=== PATIENT | male | born 1970 | race Two or more races ===

== ENCOUNTER 2018-11-14 12:22 | Emergency (ER) | payer BC, OTHER ==
[2018-11-14 12:48] VITALS: BP 126/73
[2018-11-14] MEDS ORDERED: KETOROLAC TROMETHAMINE 60 MG/2 ML SDV IM ONE (13:48)
[2018-11-14] MEDS ORDERED: METHYLPREDNISOLONE ACETATE INJ 80 MG/1 ML VIAL IM ONE (13:48)
--- NOTE | 2018-11-14 13:50 | ER Document Report ---
ED General - General Chief Complaint: Shortness Of Breath Stated Complaint: SHORT OF BREATH Time Seen by Provider: 11/14/18 13:41 Primary Care Provider: TILA LAWSON MD [Primary Care Provider] - Follow up in 3-5 days Notes: Patient is a 48-year-old male otherwise healthy that presents to the emergency department for chief complaint of pain with deep breathing on both sides. Patient states he recently got over a cold, was having some cough, and had sick contacts. Now is having pain with taking deep breathing, and both sides of his chest, mainly on the outside by the ribs. He denies having any pain at rest, denies shortness of breath, or difficulty breathing. He states is across his entire chest, and towards the back on both sides. He denies any dyspnea on exertion, fevers, chills, night sweats, nausea, vomiting or abdominal pain. He also denies having any headaches, lightheadedness or dizziness. He does state he was recently seen by urgent care, [facility], he did a chest x-ray 3 days ago, that was negative for any acute process, negative for pneumonia according to the patient. Past Medical History: Denies chronic medical conditions Past Surgical History: Shoulder surgery Social History: Denies tobacco, alcohol or drug use. Family History: Reviewed and noncontributory for presenting illness Allergies: Reviewed, see documented allergy list. REVIEW OF SYSTEMS: Other than noted above, the 12 point review of systems was reviewed with the patient and were negative, all pertinent findings are included in the HPI. PHYSICAL EXAMINATION: Vital signs reviewed, nursing noted reviewed. GENERAL: Well-appearing, well-nourished and in no acute distress. HEAD: Atraumatic, normocephalic. EYES: Eyes appear normal, extraocular movements intact, sclera anicteric, conjunctiva are normal. ENT: nares patent, oropharynx clear without exudates. Moist mucous membranes. NECK: Normal range of motion, supple without lymphadenopathy LUNGS: Breath sounds clear to auscultation bilaterally and equal. No wheezes rales or rhonchi. HEART: Regular rate and rhythm without murmurs ABDOMEN: Soft, nontender, normoactive bowel sounds. No rebound, guarding, or rigidity. No masses appreciated. EXTREMITIES: Nontender, good range of motion, no pitting or edema. NEUROLOGICAL: No focal neurological deficits. Moves all extremities spontaneously Motor and sensory grossly intact on exam. PSYCH: Normal mood, normal affect. SKIN: Warm, Dry, normal turgor, no rashes or lesions noted on exposed skin TRAVEL OUTSIDE OF THE [place] IN LAST 30 DAYS: No - Related Data Allergies/Adverse Reactions: No Known Allergies Allergy (Verified 07/08/14 11:43) Past Medical History - Social History Smoking Status: Unknown if Ever Smoked Family History: Reviewed & Not Pertinent Patient has suicidal ideation: No Patient has homicidal ideation: No Renal/ Medical History: Denies: Hx Peritoneal Dialysis GI Medical History: Reports: Hx Ulcer - chronic sinuitis - Immunizations Immunizations up to date: Yes Hx Diphtheria, Pertussis, Tetanus Vaccination: No Physical Exam - Vital signs Vitals: Temp Pulse Resp BP Pulse Ox 99.1 F 74 16 126/73 H 97 11/14/18 12:46 11/14/18 12:46 11/14/18 12:46 11/14/18 12:46 11/14/18 12:46 Course - Re-evaluation Re-evalutation: Patient seen and examined, vital signs reviewed, patient appears well on exam, he was complaining of pain throughout the entire chest with deep breathing, I feel that this is most likely pleurisy, as a result of recent URI, and coughing, he had a negative chest x-ray performed in urgent care 3 days ago, do not feel the need to repeat this at this time and expose the patient to unnecessary radiation, patient was given IM dose of 80 mg of Depo-Medrol, and IM Toradol, and advised to follow-up with a primary care physician. He is advised though if his symptoms are not improving over the next 24-48 hours, that he can return to the emergency department to be reevaluated. Patient was agreeable to this plan of care and discharged home. - Vital Signs Vital signs: Temp Pulse Resp BP Pulse Ox 99.1 F 74 16 126/73 H 97 11/14/18 12:46 11/14/18 12:46 11/14/18 12:46 11/14/18 12:46 11/14/18 12:46 Discharge - Discharge Clinical Impression: Pleurisy Condition: Stable Disposition: HOME, SELF-CARE Instructions: Pleurisy ([facility]) Prescriptions: Naproxen [Naprosyn] 500 mg PO BID #30 tablet Referrals: TILA LAWSON MD [Primary Care Provider] - Follow up in 3-5 days
== END 2018-11-14 14:02 | disposition home or self-care (01) ==
LOC: ER 12:22
DX: R09.1 Pleurisy (principal); R06.02 Shortness of breath
CPT/HCPCS: 99284; 96372; J1885; J1040

== ENCOUNTER 2019-01-08 14:17 | Emergency (ER) | payer OTHER ==
[2019-01-08] MEDS ORDERED: ASPIRIN 81 MG TABLET, CHEWABLE PO ONE (15:25)
--- NOTE | 2019-01-08 15:34 | EKG REPORT ---
SEVERITY:- NORMAL ECG - SINUS RHYTHM : Confirmed by: Amaris Lopes MD 08-Jan-2019 15:34:02
[2019-01-08 16:24] LABS: ABSOLUTE BASOPHILS # (AUTO) 0.1 10^3/uL (0.0-0.2); ABSOLUTE EOSINOPHILS # (AUTO) 0.1 10^3/uL (0.0-0.6); ABSOLUTE LYMPHOCYTES (AUTO) 2.9 10^3/uL (0.5-4.7); ABSOLUTE MONOCYTES (AUTO) 0.7 10^3/uL (0.1-1.4); ABSOLUTE NEUT (AUTO) 4.4 10^3/uL (1.7-8.2); BASOPHILS % (AUTO) 0.6 % (0-2); EOSINOPHILS % (AUTO) 1.2 % (0-6); HEMATOCRIT 42.1 % (37.9-51.0); HEMOGLOBIN 14.9 g/dL (13.5-17.0); LYMPHOCYTES % (AUTO) 35.7 % (13-45); MEAN CORPUSCULAR HEMOGLOBIN 31.8 pg (27.0-33.4); MEAN CORPUSCULAR HGB CONC 35.3 g/dL (32.0-36.0); MEAN CORPUSCULAR VOLUME 90 fl (80-97); MONOCYTES % (AUTO) 8.2 % (3-13); PLATELET COUNT 197 10^3/uL (150-450); RED BLOOD COUNT 4.67 10^6/uL (4.35-5.55); RED CELL DISTRIBUTION WIDTH 13.3 % (11.5-14.0); SEGMENTED NEUTROPHILS % (AUTO) 54.3 % (42-78); TOTAL CELLS COUNTED % (AUTO) 100 %; WHITE BLOOD COUNT 8.2 10^3/uL (4.0-10.5)
--- NOTE | 2019-01-08 16:24 | RADIOLOGY REPORT (SQ) ---
EXAM DESCRIPTION: CHEST 2 VIEWS COMPLETED DATE/TIME: 01/08/2019 4:16 pm REASON FOR STUDY: chest pain short of breath COMPARISON: 09/13/2014 EXAM PARAMETERS: NUMBER OF VIEWS: two views TECHNIQUE: Digital Frontal and Lateral radiographic views of the chest acquired. RADIATION DOSE: NA LIMITATIONS: none FINDINGS: LUNGS AND PLEURA: No opacities, masses or pneumothorax. No pleural effusion. MEDIASTINUM AND HILAR STRUCTURES: No masses or contour abnormalities. HEART AND VASCULAR STRUCTURES: Heart normal size. No evidence for failure. BONES: No acute findings. HARDWARE: None in the chest. OTHER: No other significant finding. IMPRESSION: NO ACUTE RADIOGRAPHIC FINDING IN THE CHEST. TECHNICAL DOCUMENTATION: JOB ID: [id number] [employer]- All Rights Reserved Reading location - IP/workstation name: [email or web address]
[2019-01-08 16:42] LABS: ALANINE AMINOTRANSFERASE 49 U/L (21-72); ALBUMIN 4.6 g/dL (3.5-5.0); ALKALINE PHOSPHATASE 59 U/L (38-126); ANION GAP 9 (5-19); ASPARTATE AMINO TRANSFERASE 33 U/L (17-59); BILIRUBIN,DIRECT 0.3 mg/dL (0.0-0.4); BILIRUBIN,TOTAL 0.8 mg/dL (0.2-1.3); BLOOD UREA NITROGEN 23 mg/dL (7-20); CALCIUM 9.9 mg/dL (8.4-10.2); CARBON DIOXIDE 27 mmol/L (22-30); CHLORIDE 103 mmol/L (98-107); GLUCOSE 96 mg/dL (75-110); POTASSIUM 4.3 mmol/L (3.6-5.0); SODIUM 138.5 mmol/L (137-145); TOTAL PROTEIN 7.4 g/dL (6.3-8.2)
[2019-01-08 16:54] LABS: CREATINE KINASE MB 0.32 ng/mL (<4.55)
[2019-01-08 17:04] LABS: TROPONIN I < 0.012 ng/mL
[2019-01-08 21:58] VITALS: BP 139/93
--- NOTE | 2019-01-08 23:50 | ER Document Report ---
ED General - General Chief Complaint: Chest Pain Stated Complaint: CHEST PAIN Time Seen by Provider: 01/08/19 15:24 Primary Care Provider: TILA LAWSON MD [Primary Care Provider] - Follow up in 3-5 days Notes: Patient is a 48-year-old male without chronic medical problems presents complaining of 3 weeks of continuous left-sided chest pain and intermittent palpitations. States that his symptoms started gradually, have been worsened in their intensity over the last 3 weeks. He has seen his primary care physician, was diagnosed with anxiety, started on buspirone and zolpidem for sleep. Does admit that he is only sleeping 2-3 hours a night and that may need his symptoms started after the loss of a loved one. He does admit to feeling somewhat anxious. However states that he is becoming increasingly concerned about the fact of the chest pain is not yet resolving and that he has had some intermitten t associated shortness of breath. He has no known cardiac history. No history of DVT or pulmonary embolus. He has no use of estrogen. No history of prolonged periods of stasis or malignancy. Pain in the left chest is described as a constant, stabbing, focal pain to his left middle chest with intermittent periods of worsening. The patient has difficulty identifying any specific worsening factor simply stating that it does seem to get worse on some occasions. Nothing seems to improve his symptoms. He denies pleuritic pain, hemoptysis, or radiation of the pain into the arms, jaw or back. TRAVEL OUTSIDE OF THE [place] 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 HENT: Negative for sore throat. Eyes: Negative for visual changes. Cardiovascular: Positive for chest pain. Respiratory: Positive for shortness of breath. Gastrointestinal: Negative for abdominal pain, vomiting or diarrhea. Genitourinary: Negative for dysuria. Musculoskeletal: Negative for back pain. Skin: Negative for rash. Neurological: Negative for headaches, weakness or numbness. 10 point ROS negative except as marked above and in HPI. Physical Exam - Vital signs Vitals: Temp Pulse Resp BP Pulse Ox 97.9 F 75 16 128/75 H 97 01/08/19 14:48 01/08/19 14:48 01/08/19 14:48 01/08/19 14:48 01/08/19 14:48 Interpretation: Normal Notes: PHYSICAL EXAMINATION: GENERAL: Well-appearing, well-nourished and in no acute distress. HEAD: Atraumatic, normocephalic. EYES: Pupils equal round and reactive to light, extraocular movements intact, sclera anicteric, conjunctiva are normal. ENT: nares patent, oropharynx clear without exudates. Moist mucous membranes. NECK: Normal range of motion, supple without lymphadenopathy LUNGS: Breath sounds clear to auscultation bilaterally and equal. No wheezes rales or rhonchi. HEART: Regular rate and rhythm without murmurs ABDOMEN: Soft, nontender, normoactive bowel sounds. No guarding, no rebound. No masses appreciated. EXTREMITIES: Normal range of motion, no pitting or edema. No cyanosis. NEUROLOGICAL: No focal neurological deficits. Moves all extremities spontaneously and on command. PSYCH: Normal mood, normal affect. SKIN: Warm, Dry, normal turgor, no rashes or lesions noted. Course - Re-evaluation Re-evalutation: 01/08/19 23:52 Presentation of chest pain in an otherwise well appearing patient. Low clinical suspicion for ACS given clinical history, exam, EKG without ST elevations or depressions, and negative initial troponin. HEART score less than or equal to 3. PE also seems unlikely given clinical history, absence of tachycardia or dyspnea. Patient is PERC criteria negative. CXR without evidence of pneumothorax or pneumonia. No widened mediastinum. Aortic dissection also seems unlikely given history, symmetric pulses, CXR, and vitals. Delta troponin III hours afte r initial remains normal. Patient is were concerned about the possibility of pulmonary embolus. We did discuss at length the PERC criteria and his negativity by this criteria. We did review the d-dimer test, the possibility of false positive and CTA for confirmation. After approximately a 20-minute long conversation which we reviewed the risks and benefits of proceeding with d-dimer followed by CTA versus guidance of PERC criteria the family did elect to avoid d-dimer testing. Patient does have slightly abnormal renal function, no old for comparison. Did advise the patient of this laboratory finding and the need for outpatient follow-up. Bedside cardiac ultrasound without evidence of pericardial effusion. Overall assessment: Chest pain in a patient without evidence of cardiac or other serious etiology on workup today. I discussed with patient that, based on their age, risk factors and emergency department testing today, the likelihood that their symptoms are related to a heart attack is very low (estimated risk of heart attack or over the next 30 days of less than 1%). The patient demonstrates decision making capacity and has verbalized an understanding of these risks to me. Based on this, the patient has chosen to follow-up as an outpatient. Usual chest pain return precautions reviewed. The patient states understanding and agreement with this plan. - Vital Signs Vital signs: Temp Pulse Resp BP Pulse Ox 97.9 F 75 13 139/93 H 100 01/08/19 14:48 01/08/19 14:48 01/08/19 21:27 01/08/19 21:27 01/08/19 21:27 - Laboratory Result Diagrams: 01/08/19 15:45 01/08/19 15:45 Laboratory results interpreted by me: 01/08/19 15:45 BUN 23 H Creatinine 1.91 H Est GFR ( Amer) 46 L Est GFR (Non-Af Amer) 38 L - Diagnostic Test Radiology reviewed: Image reviewed, Reports reviewed Radiology results interpreted by me: 01/08/19 23:53 Chest x-ray: No acute infiltrate or pneumothorax - EKG Interpretation by Me Additional EKG results interpreted by me: 01/08/19 23:53 Sinus rhythm, rate 79. No ST elevations or depressions. QTC is 422 Discharge - Discharge Clinical Impression: Chest pain of unknown etiology, Abnormal renal function finding Condition: Good Disposition: HOME, SELF-CARE Additional Instructions: You were seen today for chest pain. The exact cause of your pain is unclear. However, based on your cardiac enzyme testing, chest x-ray, and EKG it does not appear that it is from an immediately life-threatening cause at this time. Although your testing here is normal is critical that you follow-up with your primary care physician for continued evaluation of this chest pain and possible stress testing. I recommended you see your physician within the next 24-48 hours to be evaluated for consideration of a stress test. Please return to emergency department immediately if you have worsening of your chest pain, shortness of breath, vomiting, become unable to exert yourself due to pain or difficulty breathing, you pass out, or have any pain that radiates into your arms, jaw, or back. Please also return if you have any additional symptoms that are concerning to you. As we discussed please follow-up with your primary care doctor regarding your moderately abnormal kidney functions. I advised you to drink plenty of water over the next 1 week and have the labs rechecked within that time to determine whether or not these are chronic or single finding from just today. Referrals: TILA LAWSON MD [Primary Care Provider] - Follow up in 3-5 days
== END 2019-01-09 00:02 | disposition home or self-care (01) ==
LOC: ER 14:17
DX: R07.9 Chest pain, unspecified (principal); R06.02 Shortness of breath; R94.4 Abnormal results of kidney function studies; R00.2 Palpitations; F41.9 Anxiety disorder, unspecified; Z79.899 Other long term (current) drug therapy; F17.200 Nicotine dependence, unspecified, uncomplicated
CPT/HCPCS: 36415; 71046; 80053; 82553; 84484; 85025; 93005; 93010; 99285

== ENCOUNTER → 2019-04-02 | Outpatient (CLI) | payer OTHER ==
[2019-04-02 12:45] LABS: APPEARANCE,URINE CLEAR; BILIRUBIN,URINE NEGATIVE (NEGATIVE); COLOR,URINE YELLOW; GLUCOSE, URINE NEGATIVE (NEGATIVE); KETONES,URINE NEGATIVE (NEGATIVE); LEUKOCYTE ESTERASE,URINE NEGATIVE (NEGATIVE); NITRITE,URINE NEGATIVE (NEGATIVE); PROTEIN,URINE NEGATIVE (NEGATIVE); URINE SPECIFIC GRAVITY 1.028; UROBILINOGEN,URINE NEGATIVE mg/dL (<2.0)
[2019-04-02 12:53] LABS: ABSOLUTE EOSINOPHILS # (AUTO) 0.2 10^3/uL (0.0-0.6); ABSOLUTE LYMPHOCYTES (AUTO) 2.4 10^3/uL (0.5-4.7); ABSOLUTE MONOCYTES (AUTO) 0.5 10^3/uL (0.1-1.4); ABSOLUTE NEUT (AUTO) 3.2 10^3/uL (1.7-8.2); BASOPHILS % (AUTO) 0.7 % (0-2); EOSINOPHILS % (AUTO) 2.7 % (0-6); HEMOGLOBIN 15.7 g/dL (13.5-17.0); LYMPHOCYTES % (AUTO) 37.9 % (13-45); MEAN CORPUSCULAR HEMOGLOBIN 31.5 pg (27.0-33.4); MEAN CORPUSCULAR VOLUME 90 fl (80-97); MONOCYTES % (AUTO) 8.4 % (3-13); PLATELET COUNT 182 10^3/uL (150-450); RED CELL DISTRIBUTION WIDTH 12.6 % (11.5-14.0); SEGMENTED NEUTROPHILS % (AUTO) 50.3 % (42-78); TOTAL CELLS COUNTED % (AUTO) 100 %; WHITE BLOOD COUNT 6.3 10^3/uL (4.0-10.5)
[2019-04-02 13:05] LABS: ALANINE AMINOTRANSFERASE 41 U/L (21-72); ALBUMIN 4.5 g/dL (3.5-5.0); ALKALINE PHOSPHATASE 63 U/L (38-126); ANION GAP 8 (5-19); ASPARTATE AMINO TRANSFERASE 31 U/L (17-59); BILIRUBIN,DIRECT 0.3 mg/dL (0.0-0.4); BILIRUBIN,TOTAL 0.9 mg/dL (0.2-1.3); BLOOD UREA NITROGEN 17 mg/dL (7-20); CALCIUM 9.7 mg/dL (8.4-10.2); CARBON DIOXIDE 29 mmol/L (22-30); CHLORIDE 102 mmol/L (98-107); GLUCOSE 95 mg/dL (75-110); POTASSIUM 4.5 mmol/L (3.6-5.0); SODIUM 138.6 mmol/L (137-145); TOTAL PROTEIN 7.2 g/dL (6.3-8.2)
[2019-04-02 13:25] LABS: URINE CREATININE 117.9 mg/dL (22-328)
[2019-04-02 13:30] LABS: CREATININE 1.3 mg/dL (0.52-1.25)
== END ==
LOC: OD 11:56
PROVIDERS: ATTEND Internal Medicine Nephrology
DX: N18.2 Chronic kidney disease, stage 2 (mild) (principal)
CPT/HCPCS: 36415; 80053; 81001; 82575; 84153; 85025